=== PATIENT | male | born 1990 | race Caucasian/White ===

== ENCOUNTER 2019-11-02 01:41 | Emergency (ER) | payer SELFPAY ==
[~2019-11-02] VITALS: Ht 185.4 cm; Wt 89.8 kg
[2019-11-02 01:45] VITALS: BP 113/73
--- NOTE | 2019-11-02 01:45 | NUR ---
ED Nurse Note: Patient brought in by RA from the [facility] c/o lower back pain. patient rates his pain a 2/10 pain. non traumatic, states that he would just like to sleep. will wait for further orders
--- NOTE | 2019-11-02 02:45 | NUR ---
ED Nurse Note: Patietn refused Tylenol stating that he just wants to sleep
--- NOTE | 2019-11-02 05:46 | Emergency Room Report ---
History of Present Illness General Chief Complaint: Back Pain-No Injury Source: EMS Present Illness HPI Patient is brought in by EMS. They say he was complaining about lower back pain. The patient refused to give a history at this time. Unclear as to who requested 911 assistance[address]. The patient is refusing to answer questions. He says he just wants to rest and sleep. Allergies: Coded Allergies: PENICILLINS (Verified Allergy, Unknown, 11/02/19) Patient History Past Medical History: see triage record Social History: Reports: smoking Social History Narrative Homeless Reviewed Nursing Documentation: PMH: Agreed; PSxH: Agreed Review of Systems All Other Systems: limited Physical Exam Vital Signs Date Time Temp Pulse Resp B/P (MAP) Pulse Ox O2 Delivery O2 Flow Rate FiO2 11/02/19 01:43 98.2 89 20 113/73 (86) 98 Room Air Sp02 EP Interpretation: reviewed, normal General Appearance: well appearing, no apparent distress, non-toxic, other - Sleepy Head: normocephalic Eyes: bilateral eye PERRL, bilateral eye EOMI, bilateral eye Scleral Injection ENT: moist mucus membranes Neck: full range of motion, supple Respiratory: chest non-tender, lungs clear, normal breath sounds Cardiovascular #1: regular rate, rhythm Cardiovascular #2: 2+ radial (R) Gastrointestinal: normal inspection, normal bowel sounds, non tender, no mass, non-distended Musculoskeletal: back normal - Spine palpated, no deformity, no reaction to palpation, normal range of motion Neurologic: alert, motor strength/tone normal, DTRs symmetric, sensory intact Psychiatric: other - Sleepy and refusing to answer questions Skin: no rash, warm/dry Medical Decision Making Homeless Attestation I, The treating physician Dr. Sal, have assessed and agree that patient is medically stable for discharge to an outpatient disposition. Diagnostic Impression: Primary Impression: Back pain Qualified Codes: M54.9 - Dorsalgia, unspecified Additional Impressions: Antisocial behavior Suspect substance abuse ER Course Patient presents via EMS with alleged back pain. Patient is refusing to answer questions and comply with evaluation. Differential includes back strain, back contusion, UTI, substance abuse amongst others. Urine ordered. Tylenol ordered also. Patient refuses to give urine. He declines to take Tylenol. Will observe. Patient slept soundly for many hours. When awakened to discuss the problem he says he has 9/10 pain in his lower back. He states that he has bone spurs. He is insisting we do something about it and take care of him but refuses labs x- rays urine and medication. When offered these he starts to become abusive with staff. He states we have to do something but refuses help. He denies suicidal ideation. Based on the initial presentation and injected sclera substance abuse is highly suspected. Attempt to get Accu-Chek. Patient refuses this also. Patient is ambulatory. Able to sit and stand without difficulty. No medical emergency. As patient is refusing care patient is discharged AGAINST MEDICAL ADVICE. Advised of risk of . Patient abusive when advisement given. Last Vital Signs Date Time Temp Pulse Resp B/P (MAP) Pulse Ox O2 Delivery O2 Flow Rate FiO2 11/02/19 06:00 98.2 76 20 120/70 98 Room Air Status: improved Disposition: AGAINST MEDICAL ADVICE Condition: Stable Scripts Acetaminophen (Tylenol) 325 Mg Tablet 650 MG ORAL Q6H PRN for Prn Pain/Headache/Temp > 101, #20 TAB 0 Refills Prov: Uche Sal MD 11/02/19 Referrals: NOT CHOSEN IPA/,REFERRING (PCP) Uche Sal MD Nov 02, 2019 05:46
[2019-11-02] MEDS ORDERED: TYLENOL325 MG ORAL (05:47)
[2019-11-02 06:00] VITALS: BP 120/70
--- NOTE | 2019-11-02 06:00 | NUR ---
ED Nurse Note: Patietn discharged from ED with a steady gait however patient started to raise voice at multiple staff members and doctor. patient voiced out that whoever touches him will get kicked. patient refused to sign homeless log, provided food. patients clothing is adequate for weather.
== END 2019-11-02 06:00 | disposition home or self-care (01) ==
LOC: EDBD 01:41 → EMR 02:08
DX: M54.9 Dorsalgia, unspecified (principal); Z72.811 Adult antisocial behavior; Z88.0 Allergy status to penicillin; F17.200 Nicotine dependence, unspecified, uncomplicated
CPT/HCPCS: 99282